=== PATIENT | female | born 1995 | race Hispanic/Latino ===

== ENCOUNTER 2017-01-05 16:10 | Emergency (ER) | payer OTHER ==
[~2017-01-05] VITALS: Ht 154.9 cm; Wt 57.6 kg
[2017-01-05] MEDS ORDERED: PAXI20TA3 PO (16:21)
[2017-01-05] MEDS ORDERED: ZOLO25TA PO (16:21)
[2017-01-05] MEDS ORDERED: PRAZ2CAP PO (16:21)
[2017-01-05] MEDS ORDERED: TRAZO50TA FT (16:21)
[2017-01-05] MEDS ORDERED: LUNE3TAB48 PO (16:21)
[2017-01-05] MEDS ORDERED: PROP60TA14 PO (16:21)
[2017-01-05 17:19] LABS: MEAN CORPUSCULAR HEMOGLOBIN 27.8 pg (27.0-33.0); MEAN CORPUSCULAR HGB CONC 32.9 g/dl (32.0-36.5); MEAN CORPUSCULAR VOLUME 84.6 fl (80.0-96.0); RED CELL DISTRIBUTION WIDTH 13.8 % (11.5-14.5); WHITE BLOOD COUNT 7.3 K/mm3 (4.0-10.0)
[2017-01-05 17:47] LABS: METHADONE URINE NEGATIVE (NEGATIVE)
[2017-01-05 17:56] LABS: ALBUMIN 4.3 GM/DL (3.2-5.2); ALBUMIN/GLOBULIN RATIO 0.96 (1.00-1.93); ALKALINE PHOSPHATASE 83 U/L (45-117); ALT/SGPT 19 U/L (12-78); ANION GAP 10 MEQ/L (8-16); AST/SGOT 15 U/L (15-37); BILIRUBIN,DIRECT < 0.1 MG/DL (0.0-0.2); BILIRUBIN,TOTAL 0.2 MG/DL (0.2-1.0); BLOOD UREA NITROGEN 12 MG/DL (7-18); CALCIUM LEVEL 8.9 MG/DL (8.5-10.1); CARBON DIOXIDE LEVEL 28 MEQ/L (21-32); CHLORIDE LEVEL 99 MEQ/L (98-107); CREATININE FOR GFR 0.59 MG/DL (0.55-1.02); GLOMERULAR FILTRATION RATE > 60.0 (>60); GLUCOSE, FASTING 86 MG/DL (70-105); POTASSIUM SERUM 3.9 MEQ/L (3.5-5.1); SODIUM LEVEL 137 MEQ/L (136-145); TOTAL PROTEIN 8.8 GM/DL (6.4-8.2)
[2017-01-05 19:33] VITALS: BP 142/95
== END 2017-01-05 20:01 | disposition home or self-care (01) ==
LOC: M ED 16:49
DX: F32.9 Major depressive disorder, single episode, unspecified (principal); F43.10 Post-traumatic stress disorder, unspecified; Z88.0 Allergy status to penicillin; Z79.899 Other long term (current) drug therapy
CPT/HCPCS: 36415; 80048; 80076; 80306; 84443; 85027; 99284; G0480

== ENCOUNTER 2017-01-23 11:19 | Emergency (ER) | payer OTHER ==
[~2017-01-23] VITALS: Ht 154.9 cm; Wt 59.0 kg
[~2017-01-23 11:19] MED LIST: LUNE3TAB48 PO; PAXI20TA3 PO; PRAZ2CAP PO; PROP60TA14 PO; TRAZO50TA FT; ZOLO25TA PO
[2017-01-23 11:20] VITALS: BP 131/78
[2017-01-23] MEDS ORDERED: MAGN400C2 PO (11:28)
[2017-01-23] MEDS ORDERED: ZOLO50TA PO (11:28)
--- NOTE | 2017-01-23 14:16 | REP ---
FIRST TRIMESTER ULTRASOUND: Real-time sonographic evaluation of the pelvis performed utilizing transabdominal and endovaginal technique. The uterus measures 8.2 x 3.7 x 4.6 cm. Intrauterine gestational sac is seen which in turn contains a yolk sac. The mean sac diameter is 9 mm corresponding to an estimated gestational age of 5 weeks 5 days. No pole is seen. Right ovary measures 2.6 x 2.8 x 1.7 cm and contains a complex cystic structure probably representing a complex corpus luteum 1.6 x 1.0 x 1.8 cm. Left ovary measures 2.9 x 2.0 x 1.6 cm. There is no ovarian torsion with blood flow seen in each ovary with duplex Doppler evaluation, resistive index right ovary is 0.39 and left ovary 0.57. No free fluid is seen. There is no other evidence of adnexal mass. There appears to be a small subchorionic hemorrhage adjacent to the gestational sac measuring 24 x 15 x 13 mm. IMPRESSION: Intrauterine gestation contains a yolk sac but no pole. Estimated gestational age 5 weeks 5 days. Small subchorionic hemorrhage. No adnexal mass or free fluid. Complex corpus luteum right ovary. No torsion. Signed by Waylon Srinivasan MD 01/23/2017 07:57 P
[2017-01-23 16:46] LABS: BASO % 0.3 % (0.0-1.0); EOS # 0.1 K/mm3 (0.0-0.50); EOS % 0.8 % (0.0-3.0); LARGE UNSTAINED CELL # 0.1 K/mm3 (0.0-0.4); LARGE UNSTAINED CELL % 1.3 % (0.0-4.0); LYMPH % 27.1 % (24.0-44.0); MEAN CORPUSCULAR HEMOGLOBIN 27.4 pg (27.0-33.0); MEAN CORPUSCULAR HGB CONC 31.7 g/dl (32.0-36.5); MEAN CORPUSCULAR VOLUME 86.6 fl (80.0-96.0); MONO # 0.3 K/mm3 (0.0-0.8); MONO % 4.3 % (0.0-5.0); NEUTROPHILS # 4.8 K/mm3 (1.8-7.7); NEUTROPHILS % 66.1 % (36.0-66.0); PLATELET COUNT, AUTOMATED 301 k/mm3 (150-450); WHITE BLOOD COUNT 7.2 K/mm3 (4.0-10.0)
[2017-01-23 17:07] LABS: ALKALINE PHOSPHATASE 68 U/L (45-117); ALT/SGPT 20 U/L (12-78); ANION GAP 6 MEQ/L (8-16); AST/SGOT 14 U/L (15-37); BILIRUBIN,TOTAL 0.5 MG/DL (0.2-1.0); BLOOD UREA NITROGEN 9 MG/DL (7-18); CALCIUM LEVEL 8.7 MG/DL (8.5-10.1); CARBON DIOXIDE LEVEL 29 MEQ/L (21-32); CHLORIDE LEVEL 101 MEQ/L (98-107); CREATININE FOR GFR 0.56 MG/DL (0.55-1.02); GLOMERULAR FILTRATION RATE > 60.0 (>60); GLUCOSE, FASTING 83 MG/DL (70-105); POTASSIUM SERUM 4.3 MEQ/L (3.5-5.1); SODIUM LEVEL 136 MEQ/L (136-145)
== END 2017-01-23 18:01 | disposition home or self-care (01) ==
LOC: M ED 12:22
DX: O20.0 Threatened abortion (principal); Z3A.01 Less than 8 weeks gestation of pregnancy; O26.891 Other specified pregnancy related conditions, first trimester; Z88.0 Allergy status to penicillin

== ENCOUNTER 2017-02-25 16:02 | Inpatient (IN) | payer OTHER ==
[~2017-02-25] VITALS: Ht 154.9 cm; Wt 62.9 kg
[~2017-02-25 16:02] MED LIST changes: +MAGN400C2 PO; +ZOLO50TA PO
[2017-02-25] MEDS ORDERED: SODIUM CHLORIDE 0.9% 1000 ML IV STA (16:20)
[2017-02-25 16:57] VITALS: BP 127/86
[2017-02-25 17:49] LABS: MEAN CORPUSCULAR HEMOGLOBIN 29.1 pg (27.0-33.0); MEAN CORPUSCULAR HGB CONC 34.6 g/dl (32.0-36.5); MEAN CORPUSCULAR VOLUME 84.1 fl (80.0-96.0); RED CELL DISTRIBUTION WIDTH 14.5 % (11.5-14.5); WHITE BLOOD COUNT 7.8 K/mm3 (4.0-10.0)
[2017-02-25] MEDS: NS 1,000 ML IV SCH (18:24)
[2017-02-25] MEDS: FAMOTIDINE IV BAG 20 MG in APPROPRIATE DILUENT 1 EA IV SCH (18:28)
[2017-02-25] MEDS: ONDANSETRON 4MG/2ML VIAL (J2405) IV SCH ×2 (18:28→21:48)
[2017-02-25 19:58] LABS: ALBUMIN 3.3 GM/DL (3.2-5.2); ALBUMIN/GLOBULIN RATIO 0.83 (1.00-1.93); ALKALINE PHOSPHATASE 54 U/L (45-117); ALT/SGPT 14 U/L (12-78); ANION GAP 7 MEQ/L (8-16); AST/SGOT 12 U/L (15-37); BILIRUBIN,TOTAL 0.3 MG/DL (0.2-1.0); BLOOD UREA NITROGEN 5 MG/DL (7-18); CALCIUM LEVEL 8.3 MG/DL (8.5-10.1); CARBON DIOXIDE LEVEL 25 MEQ/L (21-32); CHLORIDE LEVEL 104 MEQ/L (98-107); CREATININE FOR GFR 0.52 MG/DL (0.55-1.02); GLOMERULAR FILTRATION RATE > 60.0 (>60); GLUCOSE, FASTING 81 MG/DL (70-105); POTASSIUM SERUM 3.6 MEQ/L (3.5-5.1); SODIUM LEVEL 136 MEQ/L (136-145); TOTAL PROTEIN 7.3 GM/DL (6.4-8.2)
[2017-02-25] MEDS ORDERED: SERTRALINE HCL 25 MG TABLET PO SCH (21:00)
[2017-02-25 21:30] VITALS: BP 112/75
[2017-02-25] MEDS: PROMETHAZINE INJ 25 MG/ML VIAL (J2550) IV SCH (21:49)
[2017-02-26 00:58] VITALS: BP 107/58
[2017-02-26] MEDS: NS 1,000 ML IV SCH ×2 (02:00→08:27)
[2017-02-26] MEDS: FAMOTIDINE IV BAG 20 MG in APPROPRIATE DILUENT 1 EA IV SCH (06:29)
[2017-02-26 08:00] VITALS: BP 108/59
[2017-02-26] MEDS: ONDANSETRON 4MG/2ML VIAL (J2405) IV SCH (08:27)
[2017-02-26] MEDS: PROMETHAZINE INJ 25 MG/ML VIAL (J2550) IV SCH (08:27)
[2017-02-26] MEDS ORDERED: PRENATAL VITAMIN TAB PO SCH (09:00)
[2017-02-26] MEDS ORDERED: SCOPOLAMINE 1.5 MG TRANSDERMAL TOP SCH (12:00)
[2017-02-26] MEDS ORDERED: TRAN1.5D2 TOP (14:10)
--- NOTE | 2017-02-27 11:20 | DSES ---
DATE OF ADMISSION: 02/25/2017 DATE OF DISCHARGE: 02/26/2017 21-year-old, 2, para 1, at 10 weeks today presents with protracted history, nausea, vomiting in . Her oral regime to date is Phenergan suppositories. Although, she has irritable bowel syndrome (IBS) and cannot support keeping the suppository in for any length of time. She has had Zofran. She has had Diclegis and various other oral medications which have not worked. When she came in, she needed to be re-hydrated and she was started on IV meds. She tolerated those well, but she still does not tolerate the oral medications. We had elected to try scopolamine patch, which is 1.5 mg, last for 72 hours, and having done that she seemed to do well. She was able to keep down food and fluids without any nausea or vomiting. Therefore, she was going to be discharged to followup in 72 hours for re-evaluation and a new script for a scopolamine patch. On discharge, her blood pressure is 108/59, respirations are 18, pulse 75, temperature is 99.5. Her labs indicate her hemoglobin is 12.8, hematocrit 37.1, platelets are 280. Her chemistry was all within normal limits. Her electrolytes were normal. Her anion gap was 7, which is low. Her GFR was normal. Fasting glucose was 81. Albumin and globulin ratio were low. Her urine was 1.024, +1 ketones, negative for the rest. Her urine was not checked after that. Her coagulation factors were not checked either. Although, she is feeling well and robust, she elected to go home. On discharge, she is normocephalic, atraumatic. Neck full range of motion. Pupils equal and reactive to light. Distal pulses symmetric. No evidence of deep venous thrombosis (DVT), pulmonary embolism (PE) or superficial phlebitis. All mucous membranes are clean and dry and moist. She has no wheezes or rhonchi in her lungs to her bases. No costovertebral angle (CVA) tenderness. Uterus is normal size. Four quadrant bowel sounds. Nontender abdomen: No rashes, lesions or pruritus. No arthralgia or myalgia. No complaint of cough, wheezes, shortness of breath or dyspnea on exertion. No chest pain. Not bleeding. Neuro complete. No incontinence. She is somewhat reduced now with her nausea and vomiting. She has no diabetic issues. Her past medical history is unremarkable. Surgical history is unremarkable. She does not smoke or drink abuse drugs. There is no domestic violence. In summary, we have a 10-week gestation with intractable nausea and vomiting helped by the scopolamine patch, discharged to followup in the office at the appropriate interval. WILL
== END 2017-02-26 14:50 | disposition home or self-care (01) | DRG 781 ==
LOC: M PED 16:30
PROVIDERS: ADMIT Student in an Organized Health Care Education/Training Program; ATTEND Student in an Organized Health Care Education/Training Program
DX: O21.9 Vomiting of pregnancy, unspecified (principal); Z3A.10 10 weeks gestation of pregnancy; O99.611 Diseases of the digestive system complicating pregnancy, first trimester; K58.9 Irritable bowel syndrome, unspecified; O99.341 Other mental disorders complicating pregnancy, first trimester; F43.10 Post-traumatic stress disorder, unspecified; Z79.899 Other long term (current) drug therapy

== ENCOUNTER 2017-03-24 07:23 | Emergency (ER) | payer OTHER ==
[~2017-03-24] VITALS: Ht 154.9 cm; Wt 54.5 kg
[~2017-03-24 07:23] MED LIST changes: +LUNE3TAB36 PO; -LUNE3TAB48 PO; +PAXI20TA29 PO; -PAXI20TA3 PO; +TRAN1.5D2 TOP
[2017-03-24] MEDS ORDERED: PHEN1SUP6 PR (07:43)
[2017-03-24] MEDS ORDERED: ZOFR4TAB3 PO (07:43)
[2017-03-24] MEDS ORDERED: METOCLOPRAMIDE INJ 10MG/2ML VIAL (J2765) IV ONE (08:15)
[2017-03-24] MEDS ORDERED: NS 1,000 ML IV ONE (08:15)
[2017-03-24 08:35] LABS: BASO % 0.4 % (0.0-1.0); EOS # 0.2 K/mm3 (0.0-0.50); EOS % 2.3 % (0.0-3.0); LARGE UNSTAINED CELL # 0.1 K/mm3 (0.0-0.4); LARGE UNSTAINED CELL % 1.9 % (0.0-4.0); LYMPH # 1.8 K/mm3 (1.5-6.5); LYMPH % 27.1 % (24.0-44.0); MEAN CORPUSCULAR HEMOGLOBIN 28.3 pg (27.0-33.0); MEAN CORPUSCULAR HGB CONC 33.8 g/dl (32.0-36.5); MEAN CORPUSCULAR VOLUME 83.8 fl (80.0-96.0); MONO # 0.3 K/mm3 (0.0-0.8); MONO % 4.8 % (0.0-5.0); NEUTROPHILS % 63.5 % (36.0-66.0); PLATELET COUNT, AUTOMATED 224 k/mm3 (150-450); RED CELL DISTRIBUTION WIDTH 13.7 % (11.5-14.5); WHITE BLOOD COUNT 6.4 K/mm3 (4.0-10.0)
[2017-03-24 09:47] LABS: ALBUMIN 3.1 GM/DL (3.2-5.2); ALBUMIN/GLOBULIN RATIO 0.82 (1.00-1.93); ALKALINE PHOSPHATASE 51 U/L (45-117); ALT/SGPT 12 U/L (12-78); ANION GAP 8 MEQ/L (8-16); AST/SGOT 11 U/L (15-37); BILIRUBIN,TOTAL 0.3 MG/DL (0.2-1.0); BLOOD UREA NITROGEN 5 MG/DL (7-18); CALCIUM LEVEL 8.4 MG/DL (8.5-10.1); CARBON DIOXIDE LEVEL 23 MEQ/L (21-32); CHLORIDE LEVEL 107 MEQ/L (98-107); CREATININE FOR GFR 0.49 MG/DL (0.55-1.02); GLOMERULAR FILTRATION RATE > 60.0 (>60); GLUCOSE, FASTING 75 MG/DL (70-105); HCG, SERUM QUANTITATIVE 44559 MIU/ML; POTASSIUM SERUM 3.9 MEQ/L (3.5-5.1); SODIUM LEVEL 138 MEQ/L (136-145); TOTAL PROTEIN 6.9 GM/DL (6.4-8.2)
[2017-03-24] MEDS ORDERED: NITROFURANTOIN (MACROBID) 100 MG CAP PO ONE (10:15)
[2017-03-24] MEDS ORDERED: MACR100C43 PO (10:15)
[2017-03-24 10:17] VITALS: BP 110/69
--- NOTE | 2017-03-25 09:01 | REP ---
First trimester obstetric sonography: History: Vomiting. Findings: Transabdominal scanning demonstrates a viable single intrauterine oblique fetus head to the maternal right. motion is observed. heart rate is recorded at 158 beats per minute. A posterior placenta is seen without evidence of previa. Amniotic fluid is subjectively normal. No extrauterine abnormality is observed. Biometry chart: BPD 2.6 cm 14 weeks 4 days Head circumference 9.7 cm 14 weeks 3 days Abdominal circumference 8.5 cm 14 week 5 days Femur length 1.4 cm 14 weeks 2 days Humeral length 1.5 cm 14 weeks 0 days HC/AC ratio normal 1.14. Cephalic index normal 0.76. Estimated weight 99 grams, 0 pounds 3 ounces, 43rd percentile for 14 weeks 3 days. Impression: Viable single intrauterine gestation at 14 weeks 3 days by today's composite sonographic criteria. WHIT by today's sonography September 19, 2017. No complication is identified. Signed by Jorge Haywood MD 03/24/2017 09:34 A
== END 2017-03-24 10:32 | disposition home or self-care (01) ==
LOC: M ED 07:23
DX: O21.0 Mild hyperemesis gravidarum (principal); O23.42 Unspecified infection of urinary tract in pregnancy, second trimester; O26.892 Other specified pregnancy related conditions, second trimester; O99.89 Other specified diseases and conditions complicating pregnancy, childbirth and the puerperium; O99.612 Diseases of the digestive system complicating pregnancy, second trimester; O99.342 Other mental disorders complicating pregnancy, second trimester; F43.10 Post-traumatic stress disorder, unspecified; F32.9 Major depressive disorder, single episode, unspecified; Z87.440 Personal history of urinary (tract) infections; Z3A.14 14 weeks gestation of pregnancy; Z79.899 Other long term (current) drug therapy; Z88.0 Allergy status to penicillin
CPT/HCPCS: 76811; 80053; 81001; 84702; 85025; 87086; 96361; 96374; 99283; J2765

== ENCOUNTER → 2017-03-29 | Outpatient (CLI) | payer OTHER ==
[~2017-03-29] MED LIST changes: +MACR100C43 PO; +PHEN1SUP6 PR; +ZOFR4TAB3 PO
--- NOTE | 2017-03-29 16:54 | REP ---
Focused left breast sonography: History: 15-week . Palpable area 5 o'clock position left breast. Tender to palpation. Firm mobile nodule. Sonographic findings: The palpable area is scanned from 4 o'clock to 6 o'clock. Heterogeneous fibroglandular background echotexture is seen. No cyst is observed. No mass, acoustic shadowing or architectural distortion is seen. Impression: BIRADS category one negative focused left breast sonography. Clinical follow-up is advised. Signed by Jorge Haywood MD 03/29/2017 06:44 P
== END ==
LOC: M RAD 14:36
PROVIDERS: ATTEND Student in an Organized Health Care Education/Training Program
DX: N63 Unspecified lump in breast (principal)